=== PATIENT | female | born 1950 | race Caucasian/White ===

== ENCOUNTER 2018-02-21 12:44 | Emergency (ER) | payer BC ==
[2018-02-21] MEDS ORDERED: Aspirin 81 mg CHEW TAB* 81 MG TAB.CHEW PO ONE (13:13)
--- NOTE | 2018-02-21 13:13 | UC ---
Cardiac HPI - HPI Summary HPI Summary: Patient is a 67-year-old female that presents here with chest pressure and weakness as well as dizziness. States that approximately 2 days ago she started having chest pressure which has been very mild. Been waxing and waning. Today at work her chest pressure markedly increased and she has had dizziness associated with her symptoms. She denies any shortness of breath. She denies any dyspepsia. He has a history of hypertension. She has been noncompliant with her meds for about a week. - History of Current Complaint Stated Complaint: CHEST PAIN Time Seen by Provider: 02/21/18 12:48 Hx Obtained From: Patient Onset/Duration: Gradual Onset, Lasting Days Initial Severity: Mild Current Severity: Moderate Pain Intensity: 4 Chest Pain Location: Mid Sternal Character: Pressure/Squeezing Associated Signs & Symptoms: Positive: Chest Pain, Dizziness - Allergy/Home Medications Allergies/Adverse Reactions: Allergies Allergy/AdvReac Type Severity Reaction Status Date / Time Penicillins Allergy Hives Verified 02/21/18 12:58 sulfamethoxazole Allergy Hives Verified 02/21/18 12:58 [From Bactrim] trimethoprim [From Bactrim] Allergy Hives Verified 02/21/18 12:58 PMH/Surg Hx/FS Hx/Imm Hx Previously Healthy: Yes Cardiovascular History: Hypertension - Surgical History Surgical History: Yes Surgery Procedure, Year, and Place: LEFT HIP Fx 6 YRS AGO,. c section. Trigger finger surgery - Family History Known Family History: Positive: Cardiac Disease, Hypertension - Social History Alcohol Use: Weekly Substance Use Type: None Smoking Status (MU): Never Smoked Tobacco Review of Systems Constitutional: Negative Skin: Negative Eyes: Negative ENT: Negative Respiratory: Negative Cardiovascular: Chest Pain Gastrointestinal: Negative Genitourinary: Negative Motor: Negative Neurovascular: Negative Musculoskeletal: Negative Neurological: Negative Psychological: Negative Is Patient Immunocompromised?: No All Other Systems Reviewed And Are Negative: Yes Physical Exam Triage Information Reviewed: Yes Appearance: Well-Appearing, No Pain Distress, Well-Nourished Vital Signs: Initial Vital Signs Temp 98.7 F 02/21/18 13:00 Pulse 72 02/21/18 13:00 Resp 18 02/21/18 13:00 BP 147/73 02/21/18 13:00 Pulse Ox 95 02/21/18 13:00 Vital Signs Reviewed: Yes Eyes: Positive: Conjunctiva Clear ENT: Positive: Hearing grossly normal. Negative: Nasal congestion, Nasal drainage, Tonsillar swelling, Tonsillar exudate, Sinus tenderness, Uvula midline Neck: Positive: Supple, Nontender Respiratory: Positive: Chest non-tender, Lungs clear, Normal breath sounds, No respiratory distress, No accessory muscle use Cardiovascular: Positive: RRR, No Murmur Abdomen Description: Positive: Nontender, No Organomegaly Bowel Sounds: Positive: Present Musculoskeletal: Positive: ROM Intact, No Edema Neurological: Positive: Alert Psychological Exam: Normal Skin Exam: Normal Diagnostics - EKG Cardiac Rate: NL Cardiac Rhythm: Sinus: Normal Ectopy: None EKG Comparison: No Significant Change - Clinical Impression Provider Diagnoses: chest pain of uncertain cause Discharge - Sign-Out/Discharge Documenting (check all that apply): Patient Departure - Discharge Plan Condition: Stable Disposition: TRANS HIGHER L OF CARE FAC Referrals: Laith Patel MD [Primary Care Provider] - - Billing Disposition and Condition Condition: STABLE Disposition: Trans Higher Lvl of Care Fac
[2018-02-21] MEDS ORDERED: Nitroglycerin TAB 0.4 MG* 0.4 MG TAB SL ONE (13:14)
[2018-02-21 13:33] VITALS: BP 133/77
== END 2018-02-21 13:55 | disposition short-term general hospital (02) ==
LOC: UCEAST 12:44
DX: R07.89 Other chest pain (principal); R53.1 Weakness; R42 Dizziness and giddiness; Z88.0 Allergy status to penicillin; Z88.2 Allergy status to sulfonamides; Z82.49 Family history of ischemic heart disease and other diseases of the circulatory system
CPT/HCPCS: 93005; 99203; A9270-GY; G0463

== ENCOUNTER 2018-02-21 14:03 | Emergency (ER) | payer BC ==
[2018-02-21] MEDS ORDERED: NS 0.9% 1000 ML* 1,000 ML IV ONE (14:14)
[2018-02-21] MEDS ORDERED: Ketorolac INJ* 30 MG/ML 1 ML VIAL IV PUSH ONE (14:15)
--- NOTE | 2018-02-21 14:21 | ED ---
HPI Chest Pain - HPI Summary HPI Summary: 67-year-old female with no past cardiac history presents with 3 days of largely continuous substernal chest pain. She states the pain is worsened by moving her arms, sitting up and deep breathing. She has not had cough, fever or shortness of breath. She has had mild dizziness today but no other associated symptoms to include abdominal or back pain or radiation of the discomfort. She does have a history of controlled hypertension but denies dyslipidemia, smoking , diabetes but does have family history for heart disease. She was seen just prior to this a convenient care and was given 4 baby aspirin and one nitroglycerin. The nitroglycerin made no difference in her pain. Her EKG was nondiagnostic. - History of Current Complaint Time Seen by Provider: 02/21/18 14:06 Hx Obtained From: Patient - Allergy/Home Medications Allergies/Adverse Reactions: Allergies Allergy/AdvReac Type Severity Reaction Status Date / Time Penicillins Allergy Hives Verified 02/21/18 12:58 sulfamethoxazole Allergy Hives Verified 02/21/18 12:58 [From Bactrim] trimethoprim [From Bactrim] Allergy Hives Verified 02/21/18 12:58 PMH/Surg Hx/FS Hx/Imm Hx Previously Healthy: Yes Cardiovascular History: Reports: Hx Hypertension Denies: Hx Angina, Hx Coronary Artery Disease Musculoskeletal History: Reports: Hx Rheumatoid Arthritis Denies: Hx Osteoporosis - Cancer History Hx Chemotherapy: No Hx Radiation Therapy: No - Surgical History Surgery Procedure, Year, and Place: LEFT HIP Fx 6 YRS AGO,. c section. Trigger finger surgery - Immunization History Date of Tetanus Vaccine: pt states unsure Date of Influenza Vaccine: none - Family History Known Family History: Positive: Cardiac Disease, Hypertension - Social History Occupation: Employed Full-time Alcohol Use: Weekly Substance Use Type: Reports: None Smoking Status (MU): Never Smoked Tobacco Review of Systems Negative: Fever, Chills Positive: Chest Pain. Negative: Palpitations Negative: Shortness Of Breath, Cough Negative: Abdominal Pain, Vomiting, Nausea Neurological: Other - dizziness All Other Systems Reviewed And Are Negative: Yes Physical Exam Triage Information Reviewed: Yes Vital Signs Reviewed: Yes Appearance: Positive: Well-Appearing, No Pain Distress, Well-Nourished Skin: Positive: Warm, Skin Color Reflects Adequate Perfusion, Dry Eyes: Positive: Normal, EOMI ENT: Positive: Normal ENT inspection Neck: Positive: Nontender, No Lymphadenopathy Respiratory/Lung Sounds: Positive: Clear to Auscultation. Negative: Rales, Rhonchi, Wheezes Cardiovascular: Positive: RRR, Other - tender to palpation at the L sternal border Abdomen Description: Positive: Nontender, Soft Bowel Sounds: Positive: Present Musculoskeletal: Positive: Strength/ROM Intact. Negative: Edema Left, Edema Right Neurological: Positive: Normal, Sensory/Motor Intact, Alert, Oriented to Person Place, Time Psychiatric: Positive: Normal Diagnostics - Laboratory Result Diagrams: 02/21/18 14:49 02/21/18 14:49 Lab Statement: Any lab studies that have been ordered have been reviewed, and results considered in the medical decision making process. - EKG EKG #1 Cardiac Rate: NL EKG Rhythm: Sinus Rhythm ST Segment: Normal Ectopy: None EKG Interpretation: normal sinus rhythm rate of 65 with poor R-wave progression and no ST [place] Re-Evaluation - Re-Evaluation First Eval Re-Evaluation Time: 15:00 Change: Improved - Pain relieved with Toradol Chest Pain Course/Dx - Course Course Of Treatment: Patient with continuous discomfort worsening with movement and deep breathing for several days. Troponin is 0. D-dimer is nonelevated. EKG [address] change. Toradol relieved all her symptoms. No independent risk factors other than I pretension. Heart score 1. Start follow- up with primary care physician. - Chest Pain Differential Diagnosis/HQI/PQRI: Acute [place], ACS, Angina, Chest Wall, GI Disease, Lower Respiratory Infection, Pulmonary Embolism - Diagnoses Provider Diagnoses: Acute chest wall pain, Atypical chest pain Discharge - Sign-Out/Discharge Documenting (check all that apply): Patient Departure - Discharge Plan Condition: Improved Disposition: HOME Patient Education Materials: Chest Wall Pain (ED) Referrals: Laith Patel MD [Primary Care Provider] - Additional Instructions: Ibuprofen or Naprosyn taken for discomfort. Deep breathing exercises and stretching. Call your doctor in the morning to schedule follow-up. Return with worsening pain, difficulty breathing, new symptoms or other concerns as discussed. - Billing Disposition and Condition Condition: IMPROVED Disposition: Home
[2018-02-21 15:05] LABS: ABS Basophils 0.1 10^3/ul (0-0.2); ABS Eosinophils 0.1 10^3/ul (0-0.6); ABS Lymphocytes 2.2 10^3/ul (1.0-4.8); ABS Monocytes 0.5 10^3/ul (0-0.8); ABS Neutrophils 3.3 10^3/ul (1.5-7.7); ABS Nucleated RBC 0 10^3/ul; Eosinophil % 1.3 % (0-6); Hematocrit 41 % (35-47); Hemoglobin 13.7 g/dl (12.0-16.0); Lymphocyte % 36.1 % (25-47); Mean Corpuscular HGB Conc 34 g/dl (31-36); Mean Corpuscular Hemoglobin 31 pg (27-31); Mean Corpuscular Volume 93 fL (80-97); Mean Platelet Volume 8.7 um3 (7.4-10.4); Nucleated Red Blood Cells % 0.1; Platelet Count 234 10^3/ul (150-450); Red Blood Count 4.37 10^6/ul (4.00-5.40); Red Cell Distribution Width 14 % (10.5-15); White Blood Count 6.2 10^3/ul (3.5-10.8)
[2018-02-21 15:12] LABS: INR 0.88 (0.77-1.02)
[2018-02-21 15:28] LABS: EGFR Non-African American 65.6 (>60)
--- NOTE | 2018-02-21 15:46 | RAD ---
Indication: Chest pain. 2 views of the chest including dual energy PA views demonstrate no mediastinal shift. Heart is of normal size and configuration. Lung varela appear clear. When compared to previous exam of April 10, 2014 no significant change is noted. IMPRESSION: No active cardiopulmonary disease is noted.
[2018-02-21 15:50] VITALS: BP 163/96
== END 2018-02-21 16:00 | disposition home or self-care (01) ==
LOC: ED 14:03
DX: R07.89 Other chest pain (principal); I10 Essential (primary) hypertension; Z82.49 Family history of ischemic heart disease and other diseases of the circulatory system; Z88.0 Allergy status to penicillin; Z88.2 Allergy status to sulfonamides
CPT/HCPCS: 36415; 71046; 80053; 82550; 83605; 83880; 84484; 85025; 85379; 85610; 93005; 96374; 99283; J1885

== ENCOUNTER 2018-06-03 15:01 | Emergency (ER) | payer BC ==
[2018-06-03 15:15] VITALS: BP 123/63
--- NOTE | 2018-06-03 15:34 | UC ---
Complaint Female HPI - HPI Summary HPI Summary: Pt c/o sudden onset of urinary urgency, frequency and dysuria X 1 week. - History Of Current Complaint Chief Complaint: UCGU Stated Complaint: URINARY Time Seen by Provider: 06/03/18 15:21 Hx Obtained From: Patient ?: No Onset/Duration: Sudden Onset, Lasting Days, Still Present Timing: Constant Severity Initially: Mild Severity Currently: Mild Pain Intensity: 4 Character: Dull Aggravating Factor(s): Urination Alleviating Factor(s): Nothing Associated Signs And Symptoms: Positive: Fever - x 1 day, has since resolved - Risk Factors Ectopic Risk Factor: Negative Ovarian Torsion Risk Factor: Negative - Allergies/Home Medications Allergies/Adverse Reactions: Allergies Allergy/AdvReac Type Severity Reaction Status Date / Time Penicillins Allergy Hives Verified 02/21/18 12:58 sulfamethoxazole Allergy Hives Verified 02/21/18 12:58 [From Bactrim] trimethoprim [From Bactrim] Allergy Hives Verified 02/21/18 12:58 Home Medications: Home Medications Golimumab [Simponi] 50 mg IM MONTHLY 06/03/18 [History Confirmed 06/03/18] Lisinopril 10 mg PO DAILY 06/03/18 [History Confirmed 06/03/18] Omeprazole 40 mg PO DAILY 06/03/18 [History Confirmed 06/03/18] PMH/Surg Hx/FS Hx/Imm Hx Previously Healthy: Yes - Surgical History Surgical History: Yes Surgery Procedure, Year, and Place: LEFT HIP Fx 6 YRS AGO,. c section. Trigger finger surgery - Family History Known Family History: Positive: Cardiac Disease, Hypertension - Social History Occupation: Retired Lives: With Family Alcohol Use: Weekly Substance Use Type: None Smoking Status (MU): Never Smoked Tobacco Have You Smoked in the Last Year: No Review of Systems All Other Systems Reviewed And Are Negative: Yes Constitutional: Positive: Fever - has resolved Skin: Positive: Negative Eyes: Positive: Negative ENT: Positive: Negative Respiratory: Positive: Negative Cardiovascular: Positive: Negative Gastrointestinal: Positive: Abdominal Pain Genitourinary: Positive: Dysuria, Frequency, Urgency Motor: Positive: Negative Neurovascular: Positive: Negative Musculoskeletal: Positive: Negative Neurological: Positive: Negative Psychological: Positive: Negative Is Patient Immunocompromised?: No Physical Exam Triage Information Reviewed: Yes Appearance: Well-Appearing Vital Signs: Initial Vital Signs Temp 98.1 F 06/03/18 15:12 Pulse 82 06/03/18 15:12 Resp 15 06/03/18 15:12 BP 123/63 06/03/18 15:12 Pulse Ox 97 06/03/18 15:12 Vital Signs Reviewed: Yes Eye Exam: Normal ENT: Positive: Hearing grossly normal Dental Exam: Normal Neck exam: Normal Respiratory Exam: Normal Cardiovascular Exam: Normal Abdominal Exam: Normal Musculoskeletal Exam: Normal Neurological Exam: Normal Psychological Exam: Normal Skin Exam: Normal Complaint Female Dx - Differential Dx/Diagnosis Differential Diagnosis/HQI/PQRI: Urinary Tract Infection Provider Diagnoses: uti Discharge - Sign-Out/Discharge Documenting (check all that apply): Patient Departure All imaging exams completed and their final reports reviewed: No Studies - Discharge Plan Condition: Stable Disposition: HOME Prescriptions: Nitrofurantoin Monohyd/M-Cryst [Macrobid 100 mg Capsule] 100 mg PO Q12H #14 cap Patient Education Materials: Urinary Tract Infection in Women (ED) Referrals: Laith Patel MD [Primary Care Provider] - 3 Days - Billing Disposition and Condition Condition: STABLE Disposition: Home
--- NOTE | 2018-06-05 21:39 | UC ---
- Progress Note Progress Note: urine culture no growth final no change 06/05/2018 Discharge - Sign-Out/Discharge Documenting (check all that apply): Post-Discharge Follow Up All imaging exams completed and their final reports reviewed: No Studies - Discharge Plan Condition: Stable Disposition: HOME Prescriptions: Nitrofurantoin Monohyd/M-Cryst [Macrobid 100 mg Capsule] 100 mg PO Q12H #14 cap Patient Education Materials: Urinary Tract Infection in Women (ED) Referrals: Laith Patel MD [Primary Care Provider] - 3 Days - Billing Disposition and Condition Condition: STABLE Disposition: Home
== END 2018-06-03 15:42 | disposition home or self-care (01) ==
LOC: UCCORT 15:01
DX: N39.0 Urinary tract infection, site not specified (principal); Z88.0 Allergy status to penicillin; Z88.1 Allergy status to other antibiotic agents
CPT/HCPCS: 81003; 87086; 99212; G0463

== ENCOUNTER → 2018-08-21 18:22 | Emergency (ER) | payer BC ==
[~2018-08-21 18:22] MED LIST: Cephalexin CAP* 500 MG PO ONE
--- NOTE | 2018-08-21 19:01 | ED ---
Head Injury - HPI Summary HPI Summary: This pt is a 67 y/o female presenting to [facility] via EMS for head injury s/p fall today. Pt reports she slipped on ice and fell striking the occipital area of her head on the sidewalk. She states she "blacked out" for a few minutes. Currently c/o headache, blurry vision. Denies neck pain, hip pain, back pain. Pt notes tetanus shot is UTD. She is not taking any anticoagulants. - History Of Current Complaint Chief Complaint: EDHeadInjury Stated Complaint: FALL Time Seen by Provider: 08/21/18 18:49 Hx Obtained From: Patient Mechanism Of Injury: Direct Blow, Fall From A Standing Position Onset/Duration: Started Hours Ago, Traumatic, Still Present Onset of Pain: Immediate Severity Initially: Mild Pain Intensity: 3 Pain Scale Used: 0-10 Numeric Location of Head Injury: Occipital Location: Discrete At: - occipital area Aggravating Factor(s): Other: - nothing Alleviating Factor(s): Other: - nothing Associated Signs And Symptoms: LOC (Time In Secs./Mins/Hrs) - "few minutes", Headache, Visual Changes - blurry, Other: - NEGATIVE: neck pain, hip pain, back pain - Allergies/Home Medications Allergies/Adverse Reactions: Allergies Allergy/AdvReac Type Severity Reaction Status Date / Time Penicillins Allergy Hives Verified 08/21/18 18:29 sulfamethoxazole Allergy Hives Verified 08/21/18 18:29 [From Bactrim] trimethoprim [From Bactrim] Allergy Hives Verified 08/21/18 18:29 PMH/Surg Hx/FS Hx/Imm Hx Cardiovascular History: Reports: Hx Hypertension Denies: Hx Angina, Hx Coronary Artery Disease Musculoskeletal History: Reports: Hx Rheumatoid Arthritis Denies: Hx Osteoporosis - Cancer History Hx Chemotherapy: No Hx Radiation Therapy: No - Surgical History Surgery Procedure, Year, and Place: LEFT HIP Fx 6 YRS AGO,. c section. Trigger finger surgery - Immunization History Date of Tetanus Vaccine: pt states unsure Date of Influenza Vaccine: none Infectious Disease History: No Infectious Disease History: Denies: Traveled Outside the [place] in Last 30 Days - Family History Known Family History: Positive: Cardiac Disease, Hypertension - Social History Alcohol Use: Occasionally Substance Use Type: Reports: None Smoking Status (MU): Never Smoked Tobacco Have You Smoked in the Last Year: No Review of Systems Negative: Fever, Chills Positive: Blurred Vision Negative: Other - NEG: neck pain, hip pain, back pain Positive: Headache All Other Systems Reviewed And Are Negative: Yes Physical Exam - Summary Physical Exam Summary: Appearance: Well appearing, no pain distress Skin: warm, dry, reflects adequate perfusion Head/face: 0.5 cm x 0.5 cm laceration over the occipital area Eyes: EOMI, OCTVAIO ENT: normal Neck: supple, nontender Respiratory: CTA, breath sounds present Cardiovascular: RRR, pulses symmetrical Abdomen: nontender, soft Musculoskeletal: normal, strength/ROM intact Neuro: normal, sensory motor intact, A&Ox3 GCS: 15 Triage Information Reviewed: Yes Vital Signs On Initial Exam: Initial Vitals Temp Pulse Resp BP Pulse Ox 98.1 F 74 20 159/89 96 08/21/18 18:24 08/21/18 18:24 08/21/18 18:24 08/21/18 18:24 08/21/18 18:24 Vital Signs Reviewed: Yes Procedures - Laceration/Wound Repair 1 Location: head Description: Linear Length, Depth and Shape: .5cm x .5 cm Betadine Prep?: Yes Irrigated w/ Saline (ccs): 200 Laceration/Wound Explored: clean Closure: [place] #__ - 3 Debridement: minimal Layer Closure?: No Sterile Dressing Applied?: No Diagnostics - Vital Signs Vital Signs Temp Pulse Resp BP Pulse Ox 08/21/18 18:24 98.1 F 74 20 159/89 96 - Laboratory Lab Statement: Any lab studies that have been ordered have been reviewed, and results considered in the medical decision making process. - CT Brain CT CT Interpretation Completed By: Radiologist Summary of CT Findings: IMPRESSION: 1. No acute intracranial findings. 2. Right posterior scalp hematoma. Dr. Lacey has reviewed this report. Cervical spine CT CT Interpretation Completed By: Radiologist Summary of CT Findings: IMPRESSION: No acute findings. Dr. Lacey has reviewed this report. Re-Evaluation - Re-Evaluation First Eval Re-Evaluation Time: 20:44 Comment: Laceration repair performed by RIKKI Bo. Second Eval Re-Evaluation Time: 20:48 Comment: Reviewed CT results with pt and discharge plan. Head Injury Course/Dx Assessment/Plan: Pt is a 67 y/o female who presents to the ED c/o headache, blurry vision, head injury s/p fall today. She slipped on ice and fell striking the occipital area of her head on the sidewalk. She states she "blacked out" for a few minutes. Brain CT shows 1. No acute intracranial findings. 2. Right posterior scalp hematoma. Cervical spine CT reveals no acute findings. Laceration repair performed by RIKKI Bo. Pt was given staple care instructions and instructed to have elfego removed after 7 days by PCP. Pt will be discharged home with follow up from her PCP and prescription for Keflex. She was instructed to return to the ED for any worsening and new symptoms. - Diagnoses Differential Diagnosis/HQI/PQRI: Contusion, Laceration Provider Diagnoses: Head injury, Laceration Discharge - Sign-Out/Discharge Documenting (check all that apply): Patient Departure - Discharge home - Discharge Plan Condition: Stable Disposition: HOME Prescriptions: Cephalexin CAP* [Keflex CAP*] 500 mg PO TID 4 Days #12 cap Patient Education Materials: Laceration (ED), Head Injury (ED), Staple Care (ED ) Referrals: Laith Patel MD [Primary Care Provider] - Additional Instructions: Have your elfego removed after 7 days by your primary care provider. You may wash with warm running water and soap starting tomorrow morning. Do not submerge underwater as an swimming. Take antibiotics as directed. Follow- up with primary care. Return to the ED for any new or worsening symptoms - Billing Disposition and Condition Condition: STABLE Disposition: Home - Attestation Statements Document Initiated by Eliz: Yes Documenting Scribe: Alysha Bradford Provider For Whom Eliz is Documenting (Include Credential): Loco Lacey MD Scribe Attestation: Alysha Magdaleno, scribed for Loco Lacey MD on 08/21/18 at 2115. Scribe Documentation Reviewed: Yes Provider Attestation: The documentation as recorded by the Alysha danielle accurately reflects the service I personally performed and the decisions made by , Loco Lacey MD Status of Scribe Document: Viewed
[2018-08-21 21:25] VITALS: BP 149/84
== END | disposition home or self-care (01) ==
LOC: ED 18:22
DX: S06.9X1A Unspecified intracranial injury with loss of consciousness of 30 minutes or less, initial encounter (principal); S01.01XA Laceration without foreign body of scalp, initial encounter; W00.0XXA Fall on same level due to ice and snow, initial encounter; Y92.480 Sidewalk as the place of occurrence of the external cause; Z88.0 Allergy status to penicillin; Z88.2 Allergy status to sulfonamides
CPT/HCPCS: 12001; 70450; 72125; 99282; A9270-GY

== ENCOUNTER → 2018-08-25 11:13 | Emergency (ER) | payer BC, OTHER ==
--- NOTE | 2018-08-25 11:56 | ED ---
Complex/Multi-Sys Presentation - HPI Summary HPI Summary: A 67 y/o female presents to the ED c/o redness on left eyelid and pain just above her buttock. In the ED room, the patient has a pulse of 77 BPM, O2 saturation of 97%, and blood pressure of 184/94. According to the patient, she fell on Monday (08/21/2018) and came to [facility]. She stated that she fell because she was scared someone was going to run her over and started running and believes she slipped and fell, but is not entirely sure. She stated that she woke up on the ground. Three irene was placed in her head as her head was bleeding due to the fall. She stated that her head is fine, but she is at [facility] because she has redness over the left eyelid. Additionally, she has a pressure behind her eyes, which could be a headache. Furthermore, the bone just above her buttock is in pain. The patient noted that after the fall, she was not able to get up off the ground and her head was bleeding which led to EMS picking her up. She had a headache on Monday (08/22/2018), however, she went to work on , Monday and today (08/23/2018 - 08/25/2018) with no complications except soreness. Patient denies any blurred vision. Patient is using brand new glasses for 2 weeks and has another set of glasses for her computer. - History Of Current Complaint Chief Complaint: EDHeadInjury Time Seen by Provider: 08/25/18 11:33 Hx Obtained From: Patient Onset/Duration: Sudden Onset, Lasting Hours, Still Present Timing: Constant Severity Currently: None Location: Negative Character: Unable To Describe Aggravating Factor(s): NOTHING Alleviating Factor(s): NOTHING Associated Signs And Symptoms: Positive: Headache, Back Pain - LOWER BACK PAIN ( JUST ABOVE BUTTOCK) - Allergies/Home Medications Allergies/Adverse Reactions: Allergies Allergy/AdvReac Type Severity Reaction Status Date / Time Penicillins Allergy Hives Verified 08/25/18 11:24 sulfamethoxazole Allergy Hives Verified 08/25/18 11:24 [From Bactrim] trimethoprim [From Bactrim] Allergy Hives Verified 08/25/18 11:24 PMH/Surg Hx/FS Hx/Imm Hx Cardiovascular History: Reports: Hx Hypertension Denies: Hx Angina, Hx Coronary Artery Disease Musculoskeletal History: Reports: Hx Rheumatoid Arthritis Denies: Hx Osteoporosis - Cancer History Hx Chemotherapy: No Hx Radiation Therapy: No - Surgical History Surgery Procedure, Year, and Place: LEFT HIP Fx 6 YRS AGO,. c section. Trigger finger surgery - Immunization History Date of Tetanus Vaccine: pt states unsure Date of Influenza Vaccine: none Infectious Disease History: No Infectious Disease History: Denies: Traveled Outside the [place] in Last 30 Days - Family History Known Family History: Positive: Cardiac Disease, Hypertension - Social History Alcohol Use: Occasionally Substance Use Type: Reports: None Smoking Status (MU): Never Smoked Tobacco Have You Smoked in the Last Year: No Review of Systems Negative: Fever Negative: Blurred Vision Positive: Other - POSITIVE: LOWER BACK PAIN (JUST ABOVE BUTTOCK) Positive: Headache All Other Systems Reviewed And Are Negative: Yes Physical Exam - Summary Physical Exam Summary: Appearance: Well appearing, no pain distress Skin: warm, dry, reflects adequate perfusion Head/face: normal Eyes: EOMI, OCTAVIO, facial ecchymosis and erythema over left eye ENT: mucous membranes moist Neck: supple, non-tender Respiratory: CTA, breath sounds present Cardiovascular: RRR, pulses symmetrical Abdomen: non-tender, soft Bowel Sounds: present Musculoskeletal: normal, strength/ROM intact Neuro: normal, sensory motor intact, A&Ox3 Triage Information Reviewed: Yes Vital Signs On Initial Exam: Initial Vitals Temp Pulse Resp BP Pulse Ox 96.9 F 75 19 184/94 98 08/25/18 11:20 08/25/18 11:20 08/25/18 11:20 08/25/18 11:20 08/25/18 11:20 Vital Signs Reviewed: Yes Procedures - Procedure Summary Procedure Summary: STAPLE REMOVAL - 3 IRENE WERE REMOVED IN ED ROOM. NO BLEEDING, WELL TOLERATED WITHOUT PAIN. Diagnostics - Vital Signs Vital Signs Temp Pulse Resp BP Pulse Ox 08/25/18 11:52 74 141/86 94 08/25/18 11:51 157/83 08/25/18 11:33 80 184/94 97 08/25/18 11:22 76 184/94 98 08/25/18 11:21 82 95 08/25/18 11:20 96.9 F 75 19 184/94 98 - Laboratory Lab Statement: Any lab studies that have been ordered have been reviewed, and results considered in the medical decision making process. Complex Multi-Symp Course/Dx Course Of Treatment: Nurse's notes reviewed. Patient with injury there was evaluated several days ago. She had negative scans then. [place] were placed. These were removed today. Wound is well-healing. She has developed an area of redness that is ecchymosis likely where her glasses struck her orbital ridge. The lower portion of her sacrum and the coccyx is slightly tender but she is able to sit. No new imaging is indicated. Treat symptomatically. - Diagnoses Differential Diagnoses/HQI/PQRI: Other - Concussive syndrome, ecchymosis, contusions, coccyx fracture Provider Diagnoses: Postconcussion syndrome, Ecchymosis of eye, Coccyx contusion, Removal of irene Discharge - Sign-Out/Discharge Documenting (check all that apply): Patient Departure - DISCHARGE Patient Received Moderate/Deep Sedation with Procedure: No - Discharge Plan Condition: Improved Disposition: HOME Patient Education Materials: Coccyx Injury (ED), Post Concussion Syndrome (ED) Referrals: Laith Patel MD [Primary Care Provider] - Additional Instructions: Tylenol, ibuprofen as needed for discomfort. Ice to sore areas. Stay active. Stay well-hydrated. Follow-up with your primary care physician in 2 days' time. Return if worse, new symptoms or other concerns. - Billing Disposition and Condition Condition: IMPROVED Disposition: Home - Attestation Statements Document Initiated by Eliz: Yes Documenting Scribe: Jaime Enamorado Provider For Whom Eliz is Documenting (Include Credential): Guy Garcia MD Scribe Attestation: Jaime Magdaleno scribed for Guy Garcia MD on 08/25/18 at 1433. Scribe Documentation Reviewed: Yes Provider Attestation: The documentation as recorded by the Jaime danielle accurately reflects the service I personally performed and the decisions made by me, Guy Garcia MD Status of Scribe Document: Viewed
[2018-08-25 11:58] VITALS: BP 141/86
== END | disposition home or self-care (01) ==
LOC: ED 11:13
DX: F07.81 Postconcussional syndrome (principal); S05.10XA Contusion of eyeball and orbital tissues, unspecified eye, initial encounter; S30.0XXA Contusion of lower back and pelvis, initial encounter; Z48.02 Encounter for removal of sutures; I10 Essential (primary) hypertension; M06.9 Rheumatoid arthritis, unspecified; W01.0XXA Fall on same level from slipping, tripping and stumbling without subsequent striking against object, initial encounter; Y92.9 Unspecified place or not applicable; Z88.0 Allergy status to penicillin; Z88.2 Allergy status to sulfonamides
CPT/HCPCS: 99282

== ENCOUNTER 2020-08-11 11:24 | Observation (INO) ==
[2020-08-11] MEDS ORDERED: NS 0.9% 1000 ml BAG 1,000 ML IV ONE (11:30)
[2020-08-11] MEDS ORDERED: Iodixanol (CONTRAST) 320 MG/ML 100 ML SDV IV ONE (11:40)
[2020-08-11 12:10] LABS: ABS Eosinophils 0.1 10^3/ul (0-0.6); ABS Monocytes 0.5 10^3/ul (0-0.8); ABS Neutrophils 3.4 10^3/ul (1.5-7.7); Hematocrit 45 % (35-47); Hemoglobin 15.1 g/dL (12.0-16.0); Lymphocyte % 33.1 %; Mean Corpuscular HGB Conc 34 g/dL (31-36); Mean Corpuscular Hemoglobin 32 pg (27-31); Mean Corpuscular Volume 94 fL (80-97); Mean Platelet Volume 9.3 fL (7.4-10.4); Platelet Count 255 10^3/uL (150-450); Red Blood Count 4.74 10^6 /uL (3.70-4.87); Red Cell Distribution Width 14 % (10-15); White Blood Count 6.1 10^3/uL (3.5-10.8)
[2020-08-11 12:27] LABS: Activated Partial Thrombo Time 30.3 seconds (26.0-38.0); INR 0.95 (0.82-1.09)
[2020-08-11 12:28] LABS: Albumin 4.4 g/dL (3.2-5.2); Albumin/Globulin Ratio 1.4 (1-3); BUN/Creatinine Ratio 14.1 (8-20); Calcium 9.3 mg/dL (8.6-10.3); EGFR African American 88.3 (>60); Globulin 3.2 g/dL (2-4); HDL Cholesterol 77.5 mg/dL; Potassium 3.9 mmol/L (3.5-5.0); Total Bilirubin 0.7 mg/dL (0.2-1.0); Total Protein 7.6 g/dL (6.4-8.9)
[2020-08-11] MEDS ORDERED: Iohexol 350 (CONTRAST) 500 ML MDV IV ONE (12:33)
[2020-08-11 13:28] LABS: Urine Appearance Clear; Urine Bilirubin Negative (Negative); Urine Blood 1+ (Negative); Urine Color Straw; Urine Glucose Negative (Negative); Urine Ketones Negative (Negative); Urine Nitrite Negative (Negative); Urine Protein Negative (Negative); Urine Specific Gravity 1.003 (1.010-1.030); Urine Urobilinogen Negative (Negative)
[2020-08-11 13:32] LABS: Urine Bacteria Absent (Absent); Urine Red Blood Cell Trace(0-2/hpf) (Absent); Urine White Blood Cell Absent (Absent)
[2020-08-11] MEDS: Aspirin EC 81 mg TAB.EC (enteric coated) PO SCH (14:24)
[2020-08-11 14:58] LABS: TSH Ultra Thyroid Stim Horm 1.12 mcIU/mL (0.34-5.60)
[2020-08-11 15:00] LABS: Free T4 0.94 ng/dL (0.61-1.12)
[2020-08-11 15:09] LABS: Folate 15.87 ng/mL (>3.99)
[2020-08-11] MEDS ORDERED: Enoxaparin 40 MG/0.4 ML SYR SUBCUT SCH ×2 (16:00→21:00)
[2020-08-11] MEDS ORDERED: Gadoteridol (CONTRAST) 279.3 MG/ML 10 ML IV ONE (20:16)
[2020-08-12 08:08] LABS: HDL Cholesterol 68.8 mg/dL
[2020-08-12] MEDS: Aspirin EC 81 mg TAB.EC (enteric coated) PO SCH (08:34)
[2020-08-12 15:21] VITALS: BP 144/88
== END 2020-08-12 15:30 | disposition home or self-care (01) ==
LOC: ED 11:24 → MEDTELE 11:24
PROVIDERS: ADMIT Hospitalist; ATTEND Internal Medicine